=== PATIENT | male | born 1955 | race Two or more races ===

== ENCOUNTER → 2019-07-25 | Outpatient (CLI) | payer OTHER | END | disposition home or self-care (01) | LOC: MAMO-SONO 12-20 08:15 → SONOGRAMA 09:39 | DX: G56.22 Lesion of ulnar nerve, left upper limb (principal) ==

== ENCOUNTER 2019-07-29 08:34 | Outpatient (CLI) | payer OTHER | END 2019-07-29 17:00 | disposition home or self-care (01) | LOC: RAD 08:34 | DX: M77.02 Medial epicondylitis, left elbow (principal) ==

== ENCOUNTER 2019-11-27 09:44 | Outpatient (CLI) | payer OTHER | END 2019-11-27 10:03 | disposition home or self-care (01) | LOC: RAD 09:44 | DX: M77.11 Lateral epicondylitis, right elbow (principal); M15.8 Other polyosteoarthritis ==

== ENCOUNTER 2020-12-11 14:21 | Outpatient (CLI) | payer OTHER | END 2020-12-11 14:33 | disposition home or self-care (01) | LOC: RAD 14:21 | PROVIDERS: ATTEND Physical Medicine & Rehabilitation | DX: M77.11 Lateral epicondylitis, right elbow (principal); M19.011 Primary osteoarthritis, right shoulder; M75.41 Impingement syndrome of right shoulder ==

== ENCOUNTER 2021-01-04 12:32 | Outpatient (CLI) | payer OTHER | END 2021-01-04 12:39 | disposition home or self-care (01) | LOC: RAD 12:32 | PROVIDERS: ATTEND General Practice | DX: M19.072 Primary osteoarthritis, left ankle and foot (principal); M79.672 Pain in left foot ==

== ENCOUNTER 2021-03-18 08:09 | Outpatient (CLI) | payer OTHER | END 2021-03-18 16:03 | disposition home or self-care (01) | LOC: NUCLEAR 08:09 | PROVIDERS: ATTEND Physical Medicine & Rehabilitation | DX: I87.2 Venous insufficiency (chronic) (peripheral) (principal); M79.605 Pain in left leg; M79.604 Pain in right leg ==

== ENCOUNTER → 2021-08-03 | Outpatient (CLI) | payer OTHER | END | disposition home or self-care (01) | LOC: RAD 11:52 | PROVIDERS: ATTEND Physical Medicine & Rehabilitation | DX: M54.2 Cervicalgia (principal) ==

== ENCOUNTER 2021-12-09 09:59 | Outpatient (CLI) | payer OTHER | END 2021-12-09 11:08 | disposition home or self-care (01) | LOC: SONOGRAMA 09:59 | PROVIDERS: ATTEND Physical Medicine & Rehabilitation | DX: M25.511 Pain in right shoulder (principal) ==

== ENCOUNTER 2022-03-15 10:43 | Outpatient (CLI) | payer OTHER | END 2022-03-15 10:44 | disposition home or self-care (01) | LOC: RAD 10:43 | PROVIDERS: ATTEND Physical Medicine & Rehabilitation | DX: M25.561 Pain in right knee (principal) ==

== ENCOUNTER 2022-03-16 13:30 | Outpatient (CLI) | payer OTHER | END 2022-03-16 14:01 | disposition home or self-care (01) | LOC: RAD 13:30 | DX: R05.1 Acute cough (principal) ==

== ENCOUNTER 2022-05-05 10:37 | Outpatient (CLI) | payer OTHER | END 2022-05-05 10:47 | disposition home or self-care (01) | LOC: RAD 10:37 | PROVIDERS: ATTEND Internal Medicine Gastroenterology | DX: R10.12 Left upper quadrant pain (principal); R07.9 Chest pain, unspecified ==

== ENCOUNTER 2023-03-15 08:43 | Outpatient (CLI) | payer OTHER | END 2023-03-15 08:54 | disposition home or self-care (01) | LOC: TOM 08:43 | PROVIDERS: ATTEND Family Medicine | DX: R05.2 Subacute cough (principal); F17.211 Nicotine dependence, cigarettes, in remission ==

== ENCOUNTER 2024-05-31 06:42 | Outpatient (CLI) | payer OTHER | END 2024-05-31 14:19 | disposition home or self-care (01) | LOC: TOM 06:42 | PROVIDERS: ATTEND Family Medicine | DX: R10.31 Right lower quadrant pain (principal); R10.813 Right lower quadrant abdominal tenderness ==

== ENCOUNTER 2025-02-11 07:05 | Outpatient (CLI) | payer OTHER | END 2025-02-11 07:15 | disposition home or self-care (01) | LOC: TOM 07:05 | PROVIDERS: ATTEND Family Medicine | DX: M54.2 Cervicalgia (principal) ==

== ENCOUNTER 2025-04-17 11:10 | Outpatient (CLI) | payer OTHER | END 2025-04-17 11:19 | disposition home or self-care (01) | LOC: SONOGRAMA 11:10 | PROVIDERS: ATTEND Anesthesiology | DX: M75.102 Unspecified rotator cuff tear or rupture of left shoulder, not specified as traumatic (principal); M25.512 Pain in left shoulder ==